=== PATIENT | male | born 1980 | race Caucasian/White ===

== ENCOUNTER 2022-09-06 00:29 | Emergency (ER) | payer OTHER, SELFPAY ==
[2022-09-06] VITALS (8 sets, daily range): BP systolic 109–144; BP diastolic 73–86; PULSE 69–74; RESP 16–22; TEMP 36.1–36.7; O2SAT 98–100; BMI 23.7
[2022-09-06] MEDS: ONDANSETRON 2 MG/ML inj 4 MG IVP (00:30)
[2022-09-06] MEDS: 0.9 % SODIUM CHLORIDE 1000 ml 1,000 ML IV (00:30)
[2022-09-06] MEDS: fentaNYL 100 MCG/2 ML inj 50 MCG IVP ×2 (00:31→01:03)
--- NOTE | 2022-09-06 00:36 | CRLHL7_ITS ---
For Patients: As a result of the Century Cures Act, medical imaging exams and procedure reports are released immediately into your electronic medical record. You may view this report before your referring provider. If you have questions, please contact your health care provider. INDICATION: Right lower quadrant pain TECHNIQUE: CT abdomen and pelvis acquired with 81 cc Isovue 370 IV contrast. COMPARISON: None. FINDINGS: Lower chest: The visualized lower lungs are aerated. No pleural or pericardial effusion. ABDOMEN: Liver: Normal enhancement. No focal suspicious hepatic lesions. Gallbladder and biliary: Normal gallbladder without radiopaque stone. Normal caliber bile ducts. Spleen: Calcified splenic granulomas. Pancreas: Normal enhancement without peripancreatic inflammatory changes or ductal dilatation. Adrenal glands: Normal adrenal glands. Kidneys and ureters: Delayed nephrogram in the right kidney with mild proximal hydroureteronephrosis secondary to a 6 millimeter stone in the proximal right ureter. Bilateral additional nonobstructing nephrolithiasis. Subcentimeter hypodensities are too small to characterize however statistically represent cysts. GI tract: The stomach is relatively decompressed. Normal caliber small and large bowel loops. Appendix is not definitively visualized. Vascular structures: Patent abdominal aorta and side branches. Circumaortic left renal vein, normal variant. Patent portal splenic confluence and portal veins. Lymph nodes: No lymphadenopathy in the abdomen or pelvis by size criteria. Peritoneum: No free air, free fluid, or focal drainable fluid collection. PELVIS: Genitourinary system: Although relatively decompressed there is suggestion of circumferential wall thickening of the urinary bladder. Recommend correlation with urinalysis if not already performed to assess for underlying cystitis. Normal size prostate. Calcified vas deferens suggesting underlying diabetes. SKELETAL STRUCTURES AND SOFT TISSUES: Left SI joint arthrosis. IMPRESSION: Delayed nephrogram in the right kidney with mild proximal hydroureteronephrosis secondary to a 6 millimeter stone in the proximal right ureter. Bilateral additional nonobstructing nephrolithiasis. Please note that all CT scans at this facility use dose modulation, iterative reconstruction, and/or weight-based dosing when appropriate to reduce radiation dose to as low as reasonably achievable. Dictated by Tapan Tapia MD @ 09/06/2022 1:26:39 AM (Electronically Signed)
[2022-09-06 00:47] LABS: Basophils Absolute Auto 0.05 K/uL (0.00-0.30); Basophils Percent Auto 0.5 % (0.0-3.0); Eosinophils Absolute Auto 0.18 K/uL (0.00-0.50); Eosinophils Percent Auto 1.7 % (0.0-7.0); Hematocrit 41.8 % (37.0-53.0); Hemoglobin* 13.8 gm/dL (13.5-17.5); Immature Granulocytes Abs Auto 0.01 K/uL (0.00-0.30); Immature Granulocytes Pct Auto 0.1 %; Lymphocytes Percent Auto 46.9 % (20-44); Mean Corpuscular HGB Conc 33 gm/dL (32-36); Mean Corpuscular Hemoglobin 29 pg (26-34); Mean Corpuscular Volume 88 fL (80-100); Monocytes Percent Auto 6.3 % (0.0-11.0); Neutrophils Absolute Auto 4.72 K/uL (1.7-7.0); Neutrophils Percent Auto 44.5 % (42.0-72.0); Platelet Count* 305 K/uL (140-440); RDW Coefficient of Variation % 12.9 % (11.5-15.5); Red Blood Count 4.75 m/uL (4.30-5.90); White Blood Count* 10.61 K/uL (4.50-11.00)
[2022-09-06 00:49] LABS: Slide Review Reflex No
--- NOTE | 2022-09-06 01:01 | ED.GENADULT ---
HPI - General Adult General Date Seen: 09/06/22 Chief complaint: Abdominal Pain Stated complaint: Lower Right Abdominal Pain Time Seen by Provider: 09/06/22 00:36 Source: patient and family Mode of arrival: wheelchair Limitations: no limitations History of Present Illness HPI narrative: Patient is a 41-year-old male who was in his usual state of health until he went to bed this evening. He had stir hair for supper. He had sudden onset of pain in his right abdomen that radiates into his right groin. The pain was very severe and he vomited just prior to arrival. No fevers or chills. He had no symptoms of illness during the day today. He has never had pain like this previously. He does take omeprazole for acid reflux but has no other chronic health problems. Related Data Home Medications Medication Instructions Recorded Confirmed omeprazole .ROUTE 09/06/22 Allergies Allergy/AdvReac Type Severity Reaction Status Date / Time shrimp Allergy Severe Anaphylaxis Verified 09/06/22 01:04 Review of Systems Narrative: Review of systems is outlined above otherwise noted to be negative. [facility] Social History Smoking Status: Current every day smoker What tobacco products do you use: cigarettes Do you use any of these nicotine containing products: E-Cigarettes and Vaping Products Second hand tobacco smoke exposure: No How often do you have a drink containing alcohol: never AUDIT-C Alcohol total score: 0 Non-prescribed substance use: marijuana (any form) Exam Narrative: Exam Narrative: Vitals noted. Patient is writhing in pain. HEENT: Conjunctiva clear. Neck is supple without adenopathy, thyromegaly, carotid bruit. Lungs: Clear to auscultation in all [place]. No wheezes, rales, rhonchi. Heart: Regular rate and rhythm without murmur. Abdomen: He has tenderness mainly in the right upper quadrant. No CVA tenderness. Mild right lower quadrant tenderness. No guarding, rigidity, rebound. Bowel sounds are normal. Extremities: No cyanosis or edema. Good distal pulses. Skin: No abnormalities noted of the exposed skin. Neurologic: Awake, alert, fully oriented. Neurologic exam is nonfocal. Const: Vital Signs, click to edit/add: Vital Signs - 24 hr 09/06/22 00:34 09/06/22 00:30 09/06/22 01:31 Temperature 97.0 F L 98.0 F Pulse Rate Pulse Rate [Pulse Oximeter] 69 74 Respiratory Rate 22 18 Blood Pressure Blood Pressure [Ri ght Upper Arm] 109/73 118/74 Pulse Oximetry 100 98 100 Oxygen Delivery Me thod Room Air Room Air 09/06/22 00:59 09/06/22 01:02 09/06/22 01:47 Temperature 98.0 F Pulse Rate 72 74 Pulse Rate [Pulse Oximeter] Respiratory Rate 16 18 Blood Pressure 144/83 H 138/86 Blood Pressure [Ri ght Upper Arm] Pulse Oximetry 100 100 Oxygen Delivery Me thod 09/06/22 02:25 Temperature 98.0 F Pulse Rate Pulse Rate [Pulse Oximeter] Respiratory Rate Blood Pressure Blood Pressure [Ri ght Upper Arm] Pulse Oximetry Oxygen Delivery Me thod Course Course Hospital Course: Patient seen and examined. IV is established and he is given 50 mcg of fentanyl and 4 mg of Zofran. Labs and CT are ordered. Normal saline 1 L bolus is also given. Reevaluation(s) Reevaluation #1: Labs are all unremarkable. CT shows a 6 mm stone in the proximal right ureter. He has multiple stones in both kidneys. No other abnormalities were noted. He did receive a 2nd dose of fentanyl 50 mcg. Reevaluation #2: His pain is improved and has traveled more into the groin and testicle. Toradol 30 mg IV is given. I also ordered another L of saline. Reevaluation #3: Patient had fairly sudden relief of pain I suspect that his stone has passed into the bladder. Of course is possible that it has just stopped moving. He is offered another CT but declines. I did send four tablets oxycodone 5 mg to the [employer] machine. Vital Signs Vital signs: Initial Vital Signs Pulse Oximetry 98 09/06/22 00:30 Vital Signs Pulse Oximetry 98 09/06/22 00:30 Temperature 98.0 F 09/06/22 02:25 Pulse Rate 74 09/06/22 01:31 Respiratory Rate 18 09/06/22 01:31 Blood Pressure 118/74 09/06/22 01:31 Pulse Oximetry 100 09/06/22 01:31 Oxygen Delivery Method 09/06/22 01:31 Medical Decision Making Lab Data Labs: Lab Results 09/06/22 09/06/22 Range/Units 00:30 00:30 WBC 10.61 (4.50-11.00) K/uL RBC 4.75 (4.30-5.90) m/uL Hgb 13.8 (13.5-17.5) gm/dL Hct 41.8 (37.0-53.0) % MCV 88 (80-100) fL MCH 29 (26-34) pg MCHC 33 (32-36) gm/dL RDW Coeff of Breonna 12.9 (11.5-15.5) % Plt Count 305 (140-440) K/uL Neut % (Auto) 44.5 (42.0-72.0) % Lymph % (Auto) 46.9 H (20-44) % Cherry % (Auto) 6.3 (0.0-11.0) % Eos % (Auto) 1.7 (0.0-7.0) % Baso % (Auto) 0.5 (0.0-3.0) % Neut # (Auto) 4.72 (1.7-7.0) K/uL Lymph # (Auto) 5.00 H (0.90-2.90) K/uL Cherry # (Auto) 0.70 (0.00-0.90) K/UL Eos # (Auto) 0.18 (0.00-0.50) K/uL Baso # (Auto) 0.05 (0.00-0.30) K/uL Sodium 145 (135-149) mmol/L Potassium 3.6 (3.6-5.1) mmol/L Chloride 108 (96-114) mmol/L Carbon Dioxide 26 (20-32) mmol/L BUN 15 (5-24) mg/dL Creatinine 1.2 (0.5-1.5) mg/dL Estimated Creat Clear 84.49 Estimated GFR 78 ml/min Glucose 118 H (60-115) mg/dL Calcium 9.0 (8.4-10.6) mg/dL Total Bilirubin 0.5 (0.1-1.5) mg/dL Direct Bilirubin 0.1 (0.0-0.5) mg/dL AST 33 (12-35) U/L ALT 40 (4-50) U/L Alkaline Phosphatase 59 (40-150) U/L Total Protein 7.8 (6.0-8.3) g/dL Albumin 4.7 (3.3-5.0) g/dL Lipase 103 (23-300) U/L Discharge Plan Discharge Clinical Impression: Ureterolithiasis Patient Disposition: Home, Self-Care Condition: Improved Additional Instructions: Push fluids. Ibuprofen 600 mg 3 times daily as needed for pain. Oxycodone 5-10 mg every 4 hours as needed for severe pain. Follow-up with your PCP within the next 2-3 days if you have recurrent pain to determine if a urologist is needed. Return to the emergency department for refractory pain. Prescriptions: No Action omeprazole .ROUTE Stand Alone Forms: [employer] Info Instructions
[2022-09-06 01:05] LABS: Albumin* 4.7 g/dL (3.3-5.0)
[2022-09-06 01:06] LABS: Chloride* 108 mmol/L (96-114); Potassium* 3.6 mmol/L (3.6-5.1); Sodium* 145 mmol/L (135-149)
[2022-09-06 01:08] LABS: Aspartate Amino Transferase* 33 U/L (12-35); Bilirubin Direct* 0.1 mg/dL (0.0-0.5); Bilirubin Total* 0.5 mg/dL (0.1-1.5); Blood Urea Nitrogen* 15 mg/dL (5-24); Carbon Dioxide* 26 mmol/L (20-32); Creatinine* 1.2 mg/dL (0.5-1.5); Est. Creatinine Clearance* 84.49; Estimated Glomerular Filt Rate 78 ml/min; Total Protein* 7.8 g/dL (6.0-8.3)
[2022-09-06 01:09] LABS: Alanine Aminotransferase* 40 U/L (4-50); Alkaline Phosphatase* 59 U/L (40-150); Glucose* 118 mg/dL (60-115); Lipase* 103 U/L (23-300)
[2022-09-06] MEDS: 0.9 % SODIUM CHLORIDE 500 ML 500 ML 1000 ML IV (01:46)
[2022-09-06] MEDS: KETOROLAC 30 MG/ML inj IVP (01:47)
[2022-09-06 02:52] LABS: Appearance Urine Clear (Clear); Bilirubin Urine Negative (Negative); Blood Urine 1+ (Negative); Color Urine Yellow (Yellow); Glucose Urine Negative (Negative); Ketones Urine Negative (Negative); Leukocyte Esterase Urine Negative (Negative); Nitrite Urine Negative (Negative); Protein Urine Negative (Negative); Specific Gravity Urine 1.015 (1.000-1.030); Urobilinogen Urine 0.2 (0.2-1.0); pH Urine 7.5 (5.0-8.5)
[2022-09-06 03:00] LABS: RBC Urine 0-2 (0-2); Squamous Epithelial Cell Urine Few (None-Few); WBC Urine 0-2 (0-5)
== END 2022-09-06 02:48 | disposition home or self-care (01) ==
PROVIDERS: Emergency Provider Family Medicine
DX: N20.1 Calculus of ureter (principal)
CPT/HCPCS: 36415; 74177; 80048; 80076; 81003; 81015; 83690; 85025; 94761; 96361; 96374; 96375; 96376; 99283; 99285; J1885; J2405; J3010; J7030; J7120; Q9967

== ENCOUNTER 2024-02-18 11:23 | Emergency (ER) | payer BC, SELFPAY ==
[2024-02-18] VITALS (7 sets, daily range): BP systolic 114–120; BP diastolic 70–72; PULSE 63–78; RESP 18; TEMP 36.6; O2SAT 98–100; BMI 21.4
[2024-02-18 11:59] LABS: Appearance Urine Clear (Clear); Bilirubin Urine 1+ (Negative); Blood Urine Trace-intact (Negative); Color Urine Yellow (Yellow); Glucose Urine Negative (Negative); Ketones Urine 2+ (Negative); Leukocyte Esterase Urine Negative (Negative); Nitrite Urine Negative (Negative); Protein Urine 1+ (Negative); Specific Gravity Urine 1.025 (1.000-1.030)
[2024-02-18 12:17] LABS: Squamous Epithelial Cell Urine Few (None-Few); WBC Urine 0-2 (0-5)
--- OUTSIDE RECORDS SUMMARY | 2024-02-18 12:22 | XMS_ITS | Clinical Summary ---
Author Organization [facility] Address [place], [place] [address] Care Team Providers Care Behavior Interventionist Name Role Phone Pcp, No Primary Care Provider Unavailabl e Allergies Active Allergy Reactions Criticality Noted Date Comments Shellfish Containing Products Anaphylaxis High 03/14 Medications Medication Sig Dispensed Refills Start Date End Date Status Omeprazole 20 mg tablet Take 1 tablet by mouth once daily before a meal. 0 03/01/2019 Active Active Problems Problem Noted Date Diagnosed Date Mixed hyperlipidemia 01/08/2024 Headache disorder 01/08/2024 Hypercholesterolemia 03/03/2019 Overview: February 2019: LDL over 200. Dysthymic disorder 06/03/2007 Subclinical hypothyroidism 05/11/2007 Encounters Date Type Department Care Team Description 01/06/2024 12:50 PM CDT Office Visit [facility] [address] [place] [address] Jeny Bennett PA Physical (Annual exam no concerns) 01/06/2024 Travel from Last 3 Months Immunizations Name Administration Dates Next Due Tdap 11/25/2018 Family History Medical History Relation Name Comments Other Child autism, son Unknown Father No known family hx of dad's side. Psychiatric illness Mother anxiety Relation Name Status Comments Child Father Mother Social History Tobacco Use Types Packs/Day Years Used Date Smoking Tobacco: Former Cigarettes Q uit: 03/01/2009 Smokeless Tobacco: Never Tobacco Cessation:Counseling Given: Not Answered Alcohol Use Standard Drinks/Week Comments Yes 0 (1 standard drink = 0.6 oz pure alcohol) 2019: social, approx 1 beer a month PHQ-2 Answer Date Recorded PHQ-2 TOTAL SCORE 0 01/06/2024 Social Connections Answer Date Recorded Frequency of Communication with Friends and Fami ly 0 01/06/2024 Financial Resource Strain Answer Date R ecorded Difficulty of Paying Living Expenses 3 01/06/2024 Difficulty of Paying Living Expenses Not on file 01/06/2024 Food Insecurity Answer Date Recorded Worried About Running Out of Food in the Last Ye ar 1 01/06/2024 Transportation Needs Answer Date Record ed Lack of Transportation (Medical) 1 01/06/2024 Housing Stability Answer Date Recorded Unable to Pay for Housing in the Last Year 1 01/06/2024 Sex and Gender Information Value Date Recorded Sex Assigned at Not on file Gender Identity Not on file Sexual Orientation Not on file Obstetrics History Last Filed Vital Signs Vital Sign Reading Time Taken Comments Blood Pressure 121/73 01/06/2024 12:59 PM CDT Pulse 76 01/06/2024 12:59 PM CDT Temperature - - Respiratory Rate - - Oxygen Saturation 99% 01/06/2024 12:59 PM CDT Inhaled Oxygen Concentration - - Weight 67.6 kg (149 lb) 01/06/2024 12:59 PM CDT Height 176 cm (5' 9.29) 01/06/2024 12:59 PM CDT Body Mass Index 21.82 01/06/2024 12:59 PM CDT Plan of Treatment Health Maintenance Due Date Last Done Comments COVID-19 vaccine series ( season) 2023 Influenza for age 9-49 05/09/2024 BMI (ht and wt on same day) for age 18+ 01/05/2025 01/06/2024, 03/01/2019 Depression screening for age 12+ 01/05/2025 01/06/2024, 03/01/2019 Tetanus booster 11/25/2028 11/25/2018 Lipids for age 35-44 01/05/2029 01/06/2024, 03/01/2019 Tdap Completed 11/25/2018 HIV for age 15-65 Completed 01/06/2024 Hepatitis C screening for ag e 18-79 Completed 01/06/2024 Pneumococcal series for age 6-64 Aged Out No longer eligible b ased on patient's age to complete this topic Procedures Procedure Name Priority Date/Time Associated Diagnosis Comments ANTI HIV 1/2 Routine 01/06/2024 1:27 PM CDT Screening for HIV (human immunodeficiency virus) ANTI HCV Routine 01/06/2024 1:27 PM CDT Need for hepatitis C screening test TSH Routine 01/06/2024 1:27 PM CDT Subclinical hypothyroidism LIPID PANEL W REFLEX MEASURED LDL Routine 01/06/2024 1:27 PM CDT Screening cholesterol level HEMOGLOBIN A1C SCREENING Routine 01/06/2024 1:27 PM CDT Diabetes mellitus screening COMP METABOLIC PANEL Routine 01/06/2024 1:27 PM CDT Diabetes mellitus screening from Last 3 Months Results * HEMOGLOBIN A1C SCREENING (01/06/2024 1:27 PM CDT) HEMOGLOBIN A1C SCREENING 5.4 <=6.4 % 01/07/2024 9:15 AM CDT [facility] Blood BLOOD SPECIMEN / Unknown Venipuncture / Unknown 01/06/2024 1:27 PM CDT 01/06/2024 1:28 PM CDT Narrative [facility] - 01/07/2024 9:15 AM CDT ? (<5.7%) ?Normal ? (5.7% to 6.4%) ? Indicates prediabetes ? (>=6.5%) ? Confirms diabetes Falsely low levels may be seen with: Recent Transfusion, Recent Significant Blood Loss, Hemolytic Diseases, or Falsely elevated levels may be seen with: Untreated Anemias, Splenectomy Jeny YOON CHEMISTRY [facility] [address] [place] [address], [place] * (ABNORMAL) LIPID PANEL W REFLEX MEASURED LDL (01/06/2024 1:27 PM CDT) CHOLESTEROL,TOTAL 235(H) 100 - 199 mg/dL 01/07/2024 2:08 AM CDT [facility] Comment: Cholesterol, Total Reference Ranges Desirable <200 mg/dL Borderline 200-239 mg/dL High >=240 mg/dL TRIGLYCERIDES 216(H) <150 mg/dL 01/07/2024 2:08 AM CDT [facility] HDL CHOLESTEROL 42 >40 mg/dL 2:08 AM CDT [facility] NON-HDL CHOLESTEROL 193(H) <145 mg/dl 01/07/2024 2:08 AM CDT [facility] CHOL/HDL RATIO 5.60(H) <4.50 01/07/2024 2:08 AM CDT [facility] LDL CHOLESTEROL 150(H) <=130 mg/dL 01/07/2024 2:08 AM CDT [facility] VLDL CHOLESTEROL 43(H) <=30 mg/dL 01/07/2024 2:08 AM CDT [facility] PROVIDER ORDERED STATUS RANDOM 01/07/2024 2:08 AM CDT [facility] Blood BLOOD SPECIMEN / Unknown Venipuncture / Unknown 01/06/2024 1:27 PM CDT 01/06/2024 1:28 PM CDT Jeny YOON CHEMISTRY [facility] [address] [place] [address], * TSH (01/06/2024 1:27 PM CDT) TSH 1.63 0.27 - 4.20 uIU/mL 01/07/2024 2:08 AM CDT [facility] Blood BLOOD SPECIMEN / Unknown Venipuncture / Unknown 01/06/2024 1:27 PM CDT 01/06/2024 1:28 PM CDT Narrative [facility] - 01/07/2024 2:08 AM CDT In Adults, TSH values between 5.00 and 10.00 uIU/ml do not necessarily indicate the presence of Hypothyroidism. Correlation with clinical findings such as presence of goiter and/or Thyroperoxidase (TPO) Antibody may be helpful. For more information please refer to SPEEDY 2004; 291: 228-238. Jeny YOON CHEMISTRY Performing Organization Address [facility] de Phone Number [facility] [address] [place] [address], * ANTI HCV (01/06/2024 1:27 PM CDT) HEPATITIS C ANTIBODY Non-Reacti ve Non-React fidelina 01/07/2024 1:00 AM CDT [facility] Comment:Please note, per www .CDC.gov: If a patient is known to be at high risk of HCV infection, or is symptomatic, and the physician's suspicion of HCV infection is high, HCV RNA testing is often employed and is of diagnostic value, even after an initial negative anti-HCV test result. Blood BLOOD SPECIMEN / Unknown Venipuncture / Unknown 01/06/2024 1:27 PM CDT 01/06/2024 1:28 PM CDT Jeny YOON SEND OUTS Performing Organization Address [facility] de Phone Number [facility] [address] [place] [address], * ANTI HIV 1/2 (01/06/2024 1:27 PM CDT) HIV-1/HIV-2 SCREEN Non-Reacti ve Non-Reacti ve 01/07/2024 1:46 AM CDT [facility] Comment:HIV-1 p24 and HIV-1/ HIV-2 Ab Not Detected. Blood BLOOD SPECIMEN / Unknown Venipuncture / Unknown 01/06/2024 1:27 PM CDT 01/06/2024 1:28 PM CDT Jeny YOON SEND OUTS [facility] [address] [place] [address], * (ABNORMAL) COMP METABOLIC PANEL (01/06/2024 1:27 PM CDT) SODIUM 141 136 - 145 mmol/L 01/07/2024 2:08 AM CDT [facility] POTASSIUM 4.4 3.5 - 5.1 mmol/L 01/07/2024 2:08 AM CDT [facility] CHLORIDE 103 98 - 107 mmol/L 01/07/2024 2:08 AM T [facility] CO2,TOTAL 26 22 - 29 mmol/L 01/07/2024 2:08 AM T [facility] ANION GAP 12 5 - 18 01/07/2024 2:08 AM T [facility] GLUCOSE 80 70 - 99 mg/dL 01/07/2024 2:08 AM T [facility] CALCIUM 10.1(H) 8.6 - 10.0 mg/dL 01/07/2024 2:08 AM T [facility] BUN 17 6 - 20 mg/dL 01/07/2024 2:08 AM T [facility] CREATININE 1.05 0.70 - 1.20 mg/dL 01/07/2024 2:08 AM T [facility] BUN/CREAT RATIO 16 10 - 20 2:08 AM T [facility] eGFR >90 >90 mL/min/1.7 3m2 01/07/2024 2:08 AM T [facility] Comment:As of 2021, eG FR is calculated by the CKD-EPI creatinine equation without race adjustment. ??eGFR can be influenced by muscle mass, exercise, and diet. ??The reported eGFR is an estimation only and is only applicable if the renal function is stable. ALBUMIN 4.8 4.0 - 4.9 g/dL 01/07/2024 2:08 AM CDT [facility] PROTEIN,TOTAL 7.8 6.0 - 8.0 g/dL 01/07/2024 2:08 AM CDT [facility] BILIRUBIN,TOTAL 0.4 0.0 - 1.2 mg/dL 01/07/2024 2:08 AM CDT [facility] ALK PHOSPHATASE 79 40 - 129 IU/L 01/07/2024 2:08 AM CDT [facility] ALT (SGPT) 27 10 - 50 IU/L 01/07/2024 2:08 AM CDT [facility] AST (SGOT) 20 10 - 50 IU/L 01/07/2024 2:08 AM CDT [facility] Blood BLOOD SPECIMEN / Unknown Venipuncture / Unknown 01/06/2024 1:27 PM CDT 01/06/2024 1:28 PM CDT Jeny YOON CHEMISTRY [facility] [address] [place] [address], from Last 3 Months Care Teams Behavior Interventionist Relationship Specialty Start Date End Date Pcp, No . PCP - General 10/10/16
--- NOTE | 2024-02-18 12:37 | CRLHL7_ITS ---
For Patients: As a result of the Century Cures Act, medical imaging exams and procedure reports are released immediately into your electronic medical record. You may view this report before your referring provider. If you have questions, please contact your health care provider. INDICATION: Left flank pain TECHNIQUE: Axial images were obtained from the diaphragm to the pubic symphysis. Reformats were obtained in the coronal and sagittal plane. IV Contrast: None Oral Contrast: None COMPARISON: None. FINDINGS: Lower chest: Unremarkable. Liver: Unremarkable. Normal in size and attenuation. No masses. Gallbladder and bile ducts: Unremarkable. No stones or inflammation. No biliary dilatation. Spleen: Calcifications in the spleen consistent with old granulomatous disease. Pancreas: Unremarkable. No mass or inflammation. Adrenal glands: Unremarkable. No nodules. Kidneys: Nephrolithiasis with mild left hydronephrosis. Obstructing 2 millimeter stone at the left ureterovesicular junction (series 2, image 113). Vasculature: Unremarkable. GI tract: Stomach is unremarkable. No dilated loops of large or small intestine. Pelvis: Unremarkable. Bones: Unremarkable for age. IMPRESSION: Nephrolithiasis with mild left hydronephrosis and obstructing 2 millimeter stone at the left ureterovesicular junction. Please note that all CT scans at this facility use dose modulation, iterative reconstruction, and/or weight-based dosing when appropriate to reduce radiation dose to as low as reasonably achievable. Dictated by Javy Palomo MD @ 02/18/2024 1:20:16 PM (Electronically Signed)
--- NOTE | 2024-02-18 12:39 | ED.GENADULT ---
HPI - General Adult General Chief complaint: Abdominal Pain Stated complaint: left side pain Time Seen by Provider: 02/18/24 11:43 History of Present Illness HPI narrative: Patient is a very pleasant 43-year-old male from [place] who is passing by [place] on their way to the [place] for vacation, he developed severe left-sided flank pain and anterior abdominal pain radiating through to his back. He has had no radiation to his groin, no hematuria no fevers. He has had a history of kidney stone on the right 6 mm in the past. He had multiple stones noted on his prior CT. He reports the pain is 6 to 8/10 and comes and goes. He has had no fevers, chills he does feel like he wants to be nauseated and he feels like he has to have a bowel movement. No other specific complaints. No chest pain, no shortness of breath, no fevers or rigors. No gross hematuria. Related Data Home Medications ?Medication ?Instructions ?Recorded ?Confirmed omeprazole .Route 09/06/22 Allergies Allergy/AdvReac Type Severity Reaction Status Date / Time shrimp Allergy Severe Anaphylaxis Verified 02/18/24 11:48 Review of Systems Status of ROS: Reports: 6 or more systems reviewed and unremarkable except as noted in History and below [facility] Social History Smoking Status: Current some day smoker What tobacco products do you use: cigarettes Do you use any of these nicotine containing products: Vaping Products Second hand tobacco smoke exposure: No How often do you have a drink containing alcohol: never AUDIT-C Alcohol total score: 0 Non-prescribed substance use: marijuana (any form) Exam Narrative: Exam Narrative: Objective: Patient's vital signs are within normal limits he is afebrile He is in mild distress and discomfort alert orient x3 HEENT is unremarkable no scleral icterus neck is supple chest clear abdomen bowel sounds normoactive, mild tenderness in the lateral abdominal quadrant lateral the umbilicus No rebound noted No complaints No CVA tenderness Extremities normal neurologic nonfocal Const: Vital Signs, click to edit/add: Vital Signs - 24 hr 02/18/24 11:40 02/18/24 12:37 02/18/24 12:52 Temperature 97.8 F Pulse Rate 78 Pulse Rate [Left P ulse Oximeter] 70 Respiratory Rate 18 Blood Pressure Blood Pressure [Le ft Upper Arm] 114/70 Pulse Oximetry 98 100 100 Oxygen Delivery Me thod Room Air 02/18/24 13:14 02/18/24 13:15 02/18/24 13:15 Temperature Pulse Rate 63 64 64 Pulse Rate [Left P ulse Oximeter] Respiratory Rate Blood Pressure 120/72 120/72 Blood Pressure [Le ft Upper Arm] Pulse Oximetry 100 100 100 Oxygen Delivery Me thod 02/18/24 13:16 02/18/24 13:30 Temperature Pulse Rate 63 66 Pulse Rate [Left P ulse Oximeter] Respiratory Rate Blood Pressure Blood Pressure [Le ft Upper Arm] Pulse Oximetry 99 100 Oxygen Delivery Me thod Course Vital Signs Vital signs: Initial Vital Signs Temperature 97.8 F 02/18/24 11:40 Temperature Source Temporal Artery Scan 02/18/24 11:40 Pulse Rate 70 02/18/24 11:40 Pulse Rhythm Regular 02/18/24 11:40 Respiratory Rate 18 02/18/24 11:40 Blood Pressure 114/70 02/18/24 11:40 Blood Pressure Mean 84 02/18/24 11:40 Blood Pressure Position Sitting 02/18/24 11:40 Pulse Oximetry 98 02/18/24 11:40 Oxygen Delivery Method Room Air 02/18/24 11:40 Vital Signs Temperature 97.8 F 02/18/24 11:40 Pulse Rate 70 02/18/24 11:40 Respiratory Rate 18 02/18/24 11:40 Blood Pressure 114/70 02/18/24 11:40 Pulse Oximetry 98 02/18/24 11:40 Oxygen Delivery Method Room Air 02/18/24 11:40 Temperature 97.8 F 02/18/24 11:40 Pulse Rate 66 02/18/24 13:30 Respiratory Rate 18 02/18/24 11:40 Blood Pressure 120/72 02/18/24 13:15 Pulse Oximetry 100 02/18/24 13:30 Oxygen Delivery Method Room Air 02/18/24 11:40 Medications Administered Medications: Discontinued Medications Generic Name Dose Route Start Last Admin Trade Name Freq PRN Reason Stop Dose Admin Sodium Chloride 1,000 mls @ 6,000 mls/hr 02/18/24 12:45 02/18/24 13:32 0.9 % Sodium Chloride 1000 Ml IV 02/18/24 12:54 Infused .Q10M JIMMY Infusion Ketorolac Tromethamine 30 mg 02/18/24 12:37 02/18/24 12:47 Ketorolac 30 Mg/Ml Inj IVP 02/18/24 12:38 30 mg ONCE ONE Administration Morphine Sulfate 4 mg 02/18/24 12:37 02/18/24 12:47 Morphine 4 Mg/Ml Inj IVP 02/18/24 12:38 4 mg ONCE ONE Administration Ondansetron HCl 4 mg 02/18/24 12:43 02/18/24 12:46 Ondansetron 2 Mg/Ml Inj IVP 02/18/24 12:44 4 mg ONCE ONE Administration Medical Decision Making MDM Narrative Medical decision making narrative: 43-year-old male who drinks a lot of soda, and has had a strict kidney stones presents with left flank pain sudden onset. Rule out kidney stone, rule out diverticulitis, rule out obstruction. Patient will get CT scan unenhanced of the abdomen pelvis, labs, urinalysis, fluids, IV pain medicine form of morphine and Toradol. Will check electrolytes and labs. Disposition pending findings above. Addendum 1:31 p.m.: The patient has a 2 mm left distal ureteral stone, this is consistent with his symptoms. He has other stones in his kidney still. He feels better after pain medicine can medication. I think at this point he can strain his urine, continue on his vacation with his driving, will get him into in see med prescription for Toradol and [place], return as needed, hopefully he will not have any further pain or discomfort he is markedly better at this time. I would suspect he almost passed stone by now given his improvement in symptoms. Lab Data Labs: Lab Results 02/18/24 02/18/24 Range/Units 11:50 12:40 WBC 8.28 (4.50-11.00) K/uL RBC 4.54 (4.30-5.90) m/uL Hgb 13.3 L (13.5-17.5) gm/dL Hct 38.5 (37.0-53.0) % MCV 85 (80-100) fL MCH 29 (26-34) pg MCHC 35 (32-36) gm/dL RDW Coeff of [place]onna 12.3 (11.5-15.5) % Plt Count 290 (140-440) K/uL Neut % (Auto) 77.8 H (42.0-72.0) % Lymph % (Auto) 15.0 L (20-44) % [place] % (Auto) 6.2 (0.0-11.0) % Eos % (Auto) 0.4 (0.0-7.0) % Baso % (Auto) 0.5 (0.0-3.0) % Neut # (Auto) 6.40 (1.7-7.0) K/uL Lymph # (Auto) 1.20 (0.90-2.90) K/uL [place] # (Auto) 0.50 (0.00-0.90) K/UL Eos # (Auto) 0.03 (0.00-0.50) K/uL Baso # (Auto) 0.04 (0.00-0.30) K/uL Abs Immat Gran (auto) 0.01 (0.00-0.30) K/uL Imm/Tot Granulo (auto) 0.1 % Sodium 140 (135-149) mmol/L Potassium 3.6 (3.6-5.1) mmol/L Chloride 108 (96-114) mmol/L Carbon Dioxide 23 (20-32) mmol/L Anion Gap 9 (7-15) mEq/L BUN 23 (5-24) mg/dL Creatinine 1.3 (0.5-1.5) mg/dL Estimated Creat Clear 70.76 Estimated GFR 70 ml/min Glucose 105 (60-115) mg/dL Calcium 9.6 (8.4-10.6) mg/dL C-Reactive Protein < 0.5 L (0.5-1.0) mg/dL Amylase 65 (18-89) U/L Urine Color Yellow (Yellow) Urine Appearance Clear (Clear) Urine pH 7.0 (5.0-8.5) Ur Specific [place] 1.025 (1.000-1.030) Urine Protein 1+ A (Negative) Urine Glucose (UA) Negative (Negative) Urine Ketones 2+ A (Negative) Urine Blood Trace-intact A (Negative) Urine Nitrite Negative (Negative) Urine Bilirubin 1+ A (Negative) Urine Urobilinogen 1.0 (0.2-1.0) Ur Leukocyte Esterase Negative (Negative) Urine RBC 2-5 A (0-2) Urine WBC 0-2 (0-5) Ur Squamous Epith Cells Few (None-Few) Urine Bacteria None (None) Discharge Plan Discharge Clinical Impression: Acute left flank pain Patient Disposition: Home w/ Parent or Adult Condition: Improved Additional Instructions: Strain urine for 48 hours, fluids, Toradol and [place] as needed, do not drive you take the [place], follow-up with your regular doctor in the next couple of weeks when you return as needed, would recommend to discontinue so much soda pop is sometimes I can actually exacerbate stone formation. Activity Level: Light activity Discharge Diet: Regular Prescriptions: No Action omeprazole .Route Follow Up/Referrals: Provider,Not a Local [Primary Care Provider] - Stand Alone Forms: [facility] Info Instructions
[2024-02-18] MEDS: 0.9 % SODIUM CHLORIDE 1000 ml 1,000 ML 6000 ML IV (12:46)
[2024-02-18] MEDS: ONDANSETRON 2 MG/ML inj 4 MG IVP (12:46)
[2024-02-18] MEDS: MORPHINE 4 MG/ML INJ IVP (12:47)
[2024-02-18] MEDS: KETOROLAC 30 MG/ML inj IVP (12:47)
[2024-02-18 12:55] LABS: Basophils Absolute Auto 0.04 K/uL (0.00-0.30); Basophils Percent Auto 0.5 % (0.0-3.0); Eosinophils Absolute Auto 0.03 K/uL (0.00-0.50); Eosinophils Percent Auto 0.4 % (0.0-7.0); Hematocrit 38.5 % (37.0-53.0); Hemoglobin* 13.3 gm/dL (13.5-17.5); Immature Granulocytes Abs Auto 0.01 K/uL (0.00-0.30); Immature Granulocytes Pct Auto 0.1 %; Mean Corpuscular HGB Conc 35 gm/dL (32-36); Mean Corpuscular Hemoglobin 29 pg (26-34); Mean Corpuscular Volume 85 fL (80-100); Monocytes Percent Auto 6.2 % (0.0-11.0); Neutrophils Percent Auto 77.8 % (42.0-72.0); Platelet Count* 290 K/uL (140-440); RDW Coefficient of Variation % 12.3 % (11.5-15.5); Red Blood Count 4.54 m/uL (4.30-5.90); White Blood Count* 8.28 K/uL (4.50-11.00)
[2024-02-18 12:57] LABS: Slide Review Reflex No
[2024-02-18 13:10] LABS: Chloride* 108 mmol/L (96-114); Sodium* 140 mmol/L (135-149)
[2024-02-18 13:11] LABS: Potassium* 3.6 mmol/L (3.6-5.1)
[2024-02-18 13:13] LABS: Amylase* 65 U/L (18-89); Creatinine* 1.3 mg/dL (0.5-1.5); Est. Creatinine Clearance* 70.76; Estimated Glomerular Filt Rate 70 ml/min
[2024-02-18 13:14] LABS: Anion Gap 9 mEq/L (7-15); Blood Urea Nitrogen* 23 mg/dL (5-24); Calcium* 9.6 mg/dL (8.4-10.6); Carbon Dioxide* 23 mmol/L (20-32); Glucose* 105 mg/dL (60-115)
[2024-02-18 13:17] LABS: C Reactive Protein* < 0.5 mg/dL (0.5-1.0)
== END 2024-02-18 13:45 | disposition home or self-care (01) ==
PROVIDERS: Emergency Provider Family Medicine
DX: R10.9 Unspecified abdominal pain (principal)
CPT/HCPCS: 36415; 74176; 80048; 81001; 82150; 85025; 86140; 87086; 94761; 96374; 96375; 99284; 99285; J1885; J2270; J2405; J7030